=== PATIENT | female | born 1960 | race Two or more races ===

== ENCOUNTER 2019-03-12 23:00 | Emergency (ER) | payer OTHER ==
[~2019-03-12] VITALS: Ht 152.4 cm; Wt 68.9 kg
--- NOTE | 2019-03-13 00:16 | ED.ADGEN ---
Past History Past Medical History: Asthma, Diabetes, High Cholesterol Past Surgical History: No Surgical History Smoking: Non-smoker Alcohol Use: None Drug Use: None Adult General Chief Complaint Chief Complaint ".. I got these bug bites..and they are itching.. and now they are swollen... " HPI HPI Patient is a 58 year old female who presents with above hx and complaints of insect bite to back of her neck and right mid abdomen. Sites have become inflamed and red. Patient does have a history of diabetes. Does not remember her last tetanus. No recent travel or specific ill contacts. Largest area of cellulitis is right abdomen consistent with approximately 6 cm diameter area of erythema. Areas on neck are approximately 2-3 cm diameter. Review of Systems Review of Systems Constitutional: Denies fever or chills [] Eyes: Denies change in visual acuity, redness, or eye pain [] HENT: Denies nasal congestion or sore throat [] Respiratory: Denies cough or shortness of breath [] Cardiovascular: No additional information not addressed in HPI [] GI: Denies abdominal pain, nausea, vomiting, bloody stools or diarrhea [] : Denies dysuria or hematuria [] Musculoskeletal: Denies back pain or joint pain [] Integument: Complaints of insect bite and cellulitis on her neck and right abdomen Neurologic: Denies headache, focal weakness or sensory changes [] Endocrine: Denies polyuria or polydipsia [] All other systems were reviewed and found to be within normal limits, except as documented in this note. Family History Family History Noncontributory Current Medications Current Medications Current Medications Medications (Trade) Dose Ordered Sig/Hector Start Time Stop Time Status Last Admin Dose Admin Ceftriaxone Sodium (Rocephin Im) 1 gm 1X ONCE 03/13/19 01:30 03/13/19 01:31 DC 03/13/19 01:20 1 GM Diphtheria/ Tetanus/Acell Pertussis (Boostrix) 0.5 ml ONCE ONCE 03/13/19 01:30 03/13/19 01:31 DC 03/13/19 01:22 0.5 ML Tetanus/ Diphtheria Toxoids Adsorbed (Tenivac Vial) 0.5 ml ONCE ONCE 03/13/19 01:30 03/13/19 01:31 Cancel Trimethoprim/ Sulfamethoxazole (Bactrim Ds) 1 tab 1X ONCE 03/13/19 01:30 03/13/19 01:31 DC 03/13/19 01:20 1 TAB Allergies Allergies Allergies Coded Allergies Type Severity Reaction Last Updated Verified No Known Drug Allergies 01/24/14 No Physical Exam Physical Exam Constitutional: Moderate acute distress, non-toxic appearance. [] HENT: Normocephalic, atraumatic, bilateral external ears normal, oropharynx moist, no oral exudates, nose normal. [] Eyes: PERRLA, EOMI, conjunctiva normal, no discharge. [] Neck: Normal range of motion, no tenderness, supple, no stridor. [] Area of insect bites as per history of present illness Cardiovascular:Heart rate regular rhythm, no murmur [] Lungs & Thorax: Bilateral breath sounds clear to auscultation [] Abdomen: Bowel sounds normal, soft, no tenderness, no masses, no pulsatile mas ses. [] Skin: Warm, dry, no erythema, no rash. [] Insect bites and cellulitis Back: No tenderness, no CVA tenderness. [] Extremities: No tenderness, no cyanosis, no clubbing, ROM intact, no edema. [] Neurologic: Alert and oriented X 3, normal motor function, normal sensory function, no focal deficits noted. [] Psychologic: Affect anxious, judgement normal, mood normal. [] Current Patient Data Vital Signs Vital Signs Date Time Temp Pulse Resp B/P (MAP) Pulse Ox O2 Delivery O2 Flow Rate FiO2 03/13/19 00:59 98.1 EKG EKG [] Radiology/Procedures Radiology/Procedures [] Course & Med Decision Making Course & Med Decision Making Pertinent Labs and Imaging studies reviewed. (See chart for details) Patient take Benadryl 25-50 mg 4 times a day for itching. Patient to apply warm salt compresses or Epsom salts compresses 4 times a day. Apply Polysporin and massage into the area of cellulitis 4 times a day. Patient take Tylenol and ibuprofen for discomfort. A Bactrim DS twice a day for 7 days. Follow-up primary care. Return if any concerns. [] Final Impression Final Impression 1. Insect Bites 2. Cellulitis 3. DM[] Dragon Disclaimer Dragon Disclaimer This electronic medical record was generated, in whole or in part, using a voice recognition dictation system. Dragon Disclaimer This chart was dictated in whole or in part using Voice Recognition software in a busy, high-work load, and often noisy Emergency Department environment. It may contain unintended and wholly unrecognized errors or omissions. BERNABE KRUGER MD Mar 13, 2019 00:16
[2019-03-13] MEDS ORDERED: SULF1TAB24 PO (00:58)
[2019-03-13] MEDS ORDERED: BACI28.34 TP (00:58)
[2019-03-13] MEDS ORDERED: DIPH25TA64 PO (00:58)
[2019-03-13] MEDS ORDERED: TETANUS AND DIPHTHERIA TOX/PF 0.5 ML VIAL. VAX IM ONE (01:30)
[2019-03-13] MEDS ORDERED: cefTRIAXone IM 1 GM VIAL IM ONE (01:30)
[2019-03-13] MEDS ORDERED: SMZ/TMP 800/160MG TABLET. PO ONE (01:30)
[2019-03-13] MEDS ORDERED: DIPHTH,PERTUSS(ACELL),TET TOX 0.5 ML DISP.SYRIN. VAX IM ONE (01:30)
== END 2019-03-13 01:44 | disposition home or self-care (01) ==
LOC: ER 23:00
DX: S10.96XA Insect bite of unspecified part of neck, initial encounter (principal); S30.861A Insect bite (nonvenomous) of abdominal wall, initial encounter; L03.221 Cellulitis of neck; L03.311 Cellulitis of abdominal wall; J45.909 Unspecified asthma, uncomplicated; E11.9 Type 2 diabetes mellitus without complications; E78.00 Pure hypercholesterolemia, unspecified; W57.XXXA Bitten or stung by nonvenomous insect and other nonvenomous arthropods, initial encounter; Y93.89 Activity, other specified; Y92.89 Other specified places as the place of occurrence of the external cause; Y99.8 Other external cause status
CPT/HCPCS: 90471; 90715; 96372; 99284; J0696

== ENCOUNTER 2019-03-15 22:39 | Emergency (ER) | payer OTHER ==
[~2019-03-15] VITALS: Ht 152.4 cm; Wt 68.3 kg
[~2019-03-15 22:39] MED LIST: BACI28.34 TP; DIPH25TA64 PO; SULF1TAB24 PO
--- NOTE | 2019-03-15 22:50 | ED.ADGEN ---
Past History Past Medical History: Diabetes Past Surgical History: No Surgical History Smoking: Non-smoker Alcohol Use: None Drug Use: None Adult General Chief Complaint Chief Complaint ".. The cellulitis and bug bites are much better.. but now I am vomiting..." HPI HPI Patient is a 58 year old female who presents with above hx and complaints fever, nausea and vomiting. Seen previously for bug bites and cellulitis and started on Bactrim. Patient cellulitis is markedly improved. Patient has taken the Bactrim for the last 2 days.. Patient's glucose levels today were 120 on last check. No history of bad food. History of specific ill contacts. Patient is a known diabetic.. No history of trauma. Review of Systems Review of Systems Constitutional: Complaints of fever Eyes: Denies change in visual acuity, redness, or eye pain [] HENT: Denies nasal congestion or sore throat [] Respiratory: Denies cough or shortness of breath [] Cardiovascular: No additional information not addressed in HPI [] GI: Hx of nausea, vomiting,. denies bloody stools or diarrhea [] : Denies dysuria or hematuria [] Musculoskeletal: Denies back pain or joint pain [] Integument: Denies rash or skin lesions []Except Insect bites and cellulitis Neurologic: Denies headache, focal weakness or sensory changes [] Endocrine: Denies polyuria or polydipsia [] All other systems were reviewed and found to be within normal limits, except as documented in this note. Family History Family History Non-contributory Current Medications Current Medications Current Medications Medications (Trade) Dose Ordered Sig/Hector Start Time Stop Time Status Last Admin Dose Admin Albuterol Sulfate (Ventolin Hfa Inhaler) 2 puff 1X ONCE 03/16/19 02:45 03/16/19 02:58 DC 03/16/19 02:42 2 PUFF Lactated Ringer's 1,000 ml @ 1,000 mls/hr Q1H 03/15/19 23:00 03/15/19 23:59 DC 03/15/19 23:31 1,000 MLS/HR Magnesium Hydroxide (Milk Of Magnesia) 2,400 mg 1X ONCE 03/16/19 02:30 03/16/19 02:58 DC 03/16/19 02:42 2,400 MG Magnesium Sulfate 50 ml @ 25 mls/hr 1X ONCE 03/16/19 02:30 03/16/19 03:37 DC Ondansetron HCl (Zofran) 8 mg 1X ONCE 03/15/19 23:00 03/15/19 23:01 DC 03/15/19 23:31 8 MG Sodium Bicarbonate (Sodium Bicarb Adult 8.4% Syr) 50 meq 1X ONCE 03/16/19 02:30 03/16/19 02:58 DC 03/16/19 02:42 50 MEQ Allergies Allergies Allergies Coded Allergies Type Severity Reaction Last Updated Verified No Known Drug Allergies 03/15/19 No Physical Exam Physical Exam Constitutional: moderate acute distress, non-toxic appearance. [] HENT: Normocephalic, atraumatic, bilateral external ears normal, oropharynx mo ist, no oral exudates, nose normal. [] Eyes: PERRLA, EOMI, conjunctiva normal, no discharge. [] Neck: Normal range of motion, no tenderness, supple, no stridor. [] Insect bites and cellulitis on back of neck Cardiovascular: Tachycardia Heart rate regular rhythm, no murmur [] Lungs & Thorax: Bilateral breath sounds equal at apex , on auscultation [] Abdomen: Bowel sounds normal, soft, no tenderness, no masses, no pulsatile masses. [] Distended. Obese Skin: Warm, dry, areas of cellulitis and insect stings back neck and Rt. abd. ( Marked improvement since last exam) Back: No tenderness, no CVA tenderness. [] Extremities: No tenderness, no cyanosis, no clubbing, ROM intact, no edema. [] Neurologic: Alert and oriented X 3, normal motor function, normal sensory function, no focal deficits noted. [] Psychologic: Affect anxious, judgement normal, mood normal. [] Current Patient Data Vital Signs Vital Signs Date Time Temp Pulse Resp B/P (MAP) Pulse Ox O2 Delivery O2 Flow Rate FiO2 03/16/19 03:25 98.2 84 18 120/53 (75) 98 Room Air Lab Results Laboratory Tests Test 03/15/19 23:59 White Blood Count 7.6 x10^3/uL (4.0-11.0) Red Blood Count 4.40 x10^6/uL (3.50-5.40) Hemoglobin 13.0 g/dL (12.0-15.5) Hematocrit 38.3 % (36.0-47.0) Mean Corpuscular Volume 87 fL (79-100) Mean Corpuscular Hemoglobin 30 pg (25-35) Mean Corpuscular Hemoglobin Concent 34 g/dL (31-37) Red Cell Distribution Width 13.6 % (11.5-14.5) Platelet Count 182 x10^3/uL (140-400) Neutrophils (%) (Auto) 81 % (31-73) H Lymphocytes (%) (Auto) 5 % (24-48) L Monocytes (%) (Auto) 10 % (0-9) H Eosinophils (%) (Auto) 4 % (0-3) H Basophils (%) (Auto) 0 % (0-3) Neutrophils # (Auto) 6.1 x10^3uL (1.8-7.7) Lymphocytes # (Auto) 0.4 x10^3/uL (1.0-4.8) L Monocytes # (Auto) 0.8 x10^3/uL (0.0-1.1) Eosinophils # (Auto) 0.3 x10^3/uL (0.0-0.7) Basophils # (Auto) 0.0 x10^3/uL (0.0-0.2) Prothrombin Time 10.2 SEC (9.4-11.4) Prothrombin Time INR 1.0 (0.9-1.1) Activated Partial Thromboplast Time 29 SEC (23-33) Sodium Level 129 mmol/L (136-145) L Potassium Level 4.0 mmol/L (3.5-5.1) Chloride Level 95 mmol/L (98-107) L Carbon Dioxide Level 24 mmol/L (21-32) Anion Gap 10 (6-14) Blood Urea Nitrogen 6 mg/dL (7-20) L Creatinine 1.0 mg/dL (0.6-1.0) Estimated GFR (Cockcroft-Gault) 57.4 Glucose Level 140 mg/dL (70-99) H Calcium Level 8.6 mg/dL (8.5-10.1) Magnesium Level 1.7 mg/dL (1.8-2.4) L Total Bilirubin 0.3 mg/dL (0.2-1.0) Direct Bilirubin 0.1 mg/dL (0.0-0.2) Aspartate Amino Transferase (AST) 22 U/L (15-37) Alanine Aminotransferase (ALT) 34 U/L (14-59) Alkaline Phosphatase 77 U/L (46-116) Creatine Kinase 68 U/L (26-192) Troponin I Quantitative < 0.017 ng/mL (0-0.055) LQ-Qzy-U-Type Natriuretic Peptide 108 pg/mL (0-124) Total Protein 6.6 g/dL (6.4-8.2) Albumin 3.5 g/dL (3.4-5.0) Amylase Level 66 U/L (25-115) Lipase 289 U/L (73-393) EKG EKG I interpretation EKG shows a sinus rhythm at 96 bpm. No acute morphology[] Radiology/Procedures Radiology/Procedures [][address] [address] IMAGING REPORT Signed PATIENT: MEGAN REED MACCOUNT: [id number] : 1960 LOCATION: ER AGE: 58 SEX: F EXAM STATUS: REG ER ORD. PHYSICIAN: BERNABE KRUGER MD REASON: Nausea and vomiting PROCEDURE: ACUTE ABDOMEN SERIES PA chest and AP upright supine abdomen x-rays HISTORY: Nausea and vomiting. FINDINGS: Heart and mediastinum are unremarkable. No pulmonary opacities or pleural effusions. No pneumoperitoneum. Small density at the right upper quadrant perhaps related to prior cholecystectomy or could represent right renal calculus. Moderate volume of stool. No dilated small bowel loops or abnormal air-fluid levels. IMPRESSION: No acute process in the chest. No evidence of bowel obstruction. Moderate volume of stool. Electronically signed by: Didi Pavon MD (03/16/2019 1:26 AM) [facility] DICTATED AND SIGNED BY: DIDI PAVON MD DATE: 03/16/19125 CC: TANJA YAN; BERNABE KRUGER MD ~ Course & Med Decision Making Course & Med Decision Making Pertinent Labs and Imaging studies reviewed. (See chart for details) Labs Hemolyzed- re-draw 0100. Patient to push fluids. Patient take milk of magnesia until stooling. Patient follow-up primary care. Return if any concerns. A take Tylenol or ibuprofen for discomfort. Take Zofran for nausea and vomiting. Must follow-up primary care. Continue Bactrim for now. Return if any concerns. Polysporin to areas of cellulitis 4 times a day. Keep scheduled follow-up [] Final Impression Final Impression 1. Hx Insect Bites and Cellulitis 2. DM[]- gluc 140 3. Constipation 4. Viral syndrome 5. Hypomagnesium 1,7 6. Hyponatremia 129 Dragon Disclaimer Dragon Disclaimer This electronic medical record was generated, in whole or in part, using a voice recognition dictation system. Dragon Disclaimer This chart was dictated in whole or in part using Voice Recognition software in a busy, high-work load, and often noisy Emergency Department environment. It may contain unintended and wholly unrecognized errors or omissions. Dragon Disclaimer This chart was dictated in whole or in part using Voice Recognition software in a busy, high-work load, and often noisy Emergency Department environment. It may contain unintended and wholly unrecognized errors or omissions. BERNABE KRUGER MD Mar 15, 2019 22:50
[2019-03-15] MEDS ORDERED: ONDANSETRON PF 4 MG/2 ML VIAL. IV ONE (23:00)
[2019-03-15] MEDS ORDERED: IV RINGERS SOLUTION,LACTATED 1,000 ML IV SCH (23:00)
--- NOTE | 2019-03-15 23:05 | EKG ---
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
[2019-03-16 00:49] LABS: BASO % 0 % (0-3); EOS # 0.3 x10^3/uL (0.0-0.7); EOS % 4 % (0-3); HEMATOCRIT 38.3 % (36.0-47.0); LYMPH # 0.4 x10^3/uL (1.0-4.8); LYMPH % 5 % (24-48); MEAN CORPUSCULAR HEMOGLOBIN 30 pg (25-35); MEAN CORPUSCULAR HGB CONC 34 g/dL (31-37); MEAN CORPUSCULAR VOLUME 87 fL (79-100); MONO # 0.8 x10^3/uL (0.0-1.1); MONO % 10 % (0-9); NEUT # 6.1 x10^3uL (1.8-7.7); NEUT % 81 % (31-73); PLATELET COUNT 182 x10^3/uL (140-400); RED CELL DISTRIBUTION WIDTH 13.6 % (11.5-14.5); WHITE BLOOD COUNT 7.6 x10^3/uL (4.0-11.0)
[2019-03-16 00:58] LABS: ALBUMIN 3.5 g/dL (3.4-5.0); CALCIUM 8.6 mg/dL (8.5-10.1); DIRECT BILIRUBIN 0.1 mg/dL (0.0-0.2); GFR 57.4; MAGNESIUM 1.7 mg/dL (1.8-2.4); TOTAL BILIRUBIN 0.3 mg/dL (0.2-1.0); TOTAL PROTEIN 6.6 g/dL (6.4-8.2)
--- NOTE | 2019-03-16 01:29 | RAD ---
PA chest and AP upright supine abdomen x-rays HISTORY: Nausea and vomiting. FINDINGS: Heart and mediastinum are unremarkable. No pulmonary opacities or pleural effusions. No pneumoperitoneum. Small density at the right upper quadrant perhaps related to prior cholecystectomy or could represent right renal calculus. Moderate volume of stool. No dilated small bowel loops or abnormal air-fluid levels. IMPRESSION: No acute process in the chest. No evidence of bowel obstruction. Moderate volume of stool. Electronically signed by: Darnell Pavon MD (03/16/2019 1:26 AM) [facility]
[2019-03-16] MEDS ORDERED: SODIUM BICARB ADULT 8.4% 50 MEQ/50 ML DISP.SYRIN. IV ONE (02:30)
[2019-03-16] MEDS ORDERED: MAGNESIUM SULFATE 2GM 50 ML IV ONE (02:30)
[2019-03-16] MEDS ORDERED: MAGNESIUM HYDROXIDE 2,400 MG/30 ML ORAL.SUSP. PO ONE (02:30)
[2019-03-16] MEDS ORDERED: ALBUTEROL SULFATE 8GM INHALER. ONE (02:38)
[2019-03-16] MEDS ORDERED: ALBUTEROL SULFATE 8GM INHALER. INH ONE (02:45)
[2019-03-16] MEDS ORDERED: ONDA8TAB9 PO (02:51)
[2019-03-16 03:25] VITALS: BP 120/53
== END 2019-03-16 03:35 | disposition home or self-care (01) ==
LOC: ER 22:39
DX: S10.86XD Insect bite of other specified part of neck, subsequent encounter (principal); S30.861D Insect bite (nonvenomous) of abdominal wall, subsequent encounter; L03.221 Cellulitis of neck; L03.311 Cellulitis of abdominal wall; E11.9 Type 2 diabetes mellitus without complications; R11.2 Nausea with vomiting, unspecified; K59.00 Constipation, unspecified; B34.9 Viral infection, unspecified; E83.42 Hypomagnesemia; E87.1 Hypo-osmolality and hyponatremia; W57.XXXD Bitten or stung by nonvenomous insect and other nonvenomous arthropods, subsequent encounter
CPT/HCPCS: 36415; 74022; 80048; 80076; 82150; 82550; 83690; 83735; 83880; 84443; 84484; 85025; 85610; 85730; 86705; 86709; 86803; 87040; 87340; 93005; 94640; 96361; 96374; 96375; 99285; J2405; J7120; J7613

== ENCOUNTER 2019-03-17 19:49 | Emergency (ER) | payer OTHER ==
[~2019-03-17] VITALS: Ht 152.4 cm; Wt 68.3 kg
[2019-03-17 19:49] VITALS: BP 145/84
[~2019-03-17 19:49] MED LIST changes: +ONDA8TAB9 PO
--- NOTE | 2019-03-17 19:52 | ED.ADGEN ---
Past History Past Medical History: Diabetes Past Surgical History: No Surgical History Smoking: Non-smoker Alcohol Use: None Drug Use: None Adult General Chief Complaint Chief Complaint ".. This is the third time I ve been in the Emergency room.. now I got a rash .. it seems to be from the pills... ( Bactrim) every time I take them I get a josh h..." HPI HPI Patient is a 58 year old female who presents with above hx and complaints she is rash after taking Bactrim. Patient denies any other changes in meds. No recent travel. Up-to-date with vaccinations. Patient had several insect bites to back of neck and right abdomen that developed cellulitis on previous visit. The sites has showed increased healing and resolution of significant inflammation. No history of travel. Denies immunosuppression. No history of changes in foods or soaps and only new drug has been the Bactrim. Patient normally follows at [facility]. Review of Systems Review of Systems Constitutional: Denies fever or chills [] Eyes: Denies change in visual acuity, redness, or eye pain [] HENT: Denies nasal congestion or sore throat [] Respiratory: Denies cough or shortness of breath [] Cardiovascular: No additional information not addressed in HPI [] GI: Denies abdominal pain, nausea, vomiting, bloody stools or diarrhea [] : Denies dysuria or hematuria [] Musculoskeletal: Denies back pain or joint pain [] Integument: Complaints of a allergic drug reaction to Bactrim Neurologic: Denies headache, focal weakness or sensory changes [] Endocrine: Denies polyuria or polydipsia [] All other systems were reviewed and found to be within normal limits, except as documented in this note. Family History Family History Noncontributory Current Medications Current Medications Current Medications Medications (Trade) Dose Ordered Sig/Hector Start Time Stop Time Status Last Admin Dose Admin Albuterol Sulfate (Ventolin Hfa Inhaler) 2 puff 1X ONCE 03/17/19 20:30 03/17/19 20:33 DC 03/17/19 20:47 2 PUFF Famotidine (Pepcid Vial) 20 mg 1X ONCE 03/17/19 20:30 03/17/19 20:33 DC 03/17/19 21:00 20 MG Lactated Ringer's 1,000 ml @ 1,000 mls/hr 1X ONCE 03/17/19 20:30 03/17/19 21:29 DC 03/17/19 21:00 1,000 MLS/HR Magnesium Hydroxide (Milk Of Magnesia) 2,400 mg 1X ONCE 03/17/19 20:30 03/17/19 20:33 DC 03/17/19 21:00 2,400 MG Methylprednisolone Sodium Succinate (SOLU-Medrol 125MG VIAL) 125 mg 1X ONCE 03/17/19 20:30 03/17/19 20:33 DC 03/17/19 21:00 125 MG Allergies Allergies Allergies Coded Allergies Type Severity Reaction Last Updated Verified sulfamethoxazole Allergy Severe Rash 03/17/19 Yes trimethoprim Allergy Severe Rash 03/17/19 Yes Sulfa (Sulfonamide Antibiotics) Allergy Intermediate Rash 03/17/19 Yes Physical Exam Physical Exam Constitutional: Moderate acute distress, non-toxic appearance. [] HENT: Normocephalic, atraumatic, bilateral external ears normal, oropharynx moist, no oral exudates, nose normal. [] Eyes: PERRLA, EOMI, conjunctiva normal, no discharge. [] Neck: Normal range of motion, no tenderness, supple, no stridor. [] Cardiovascular:Heart rate regular rhythm, no murmur [] Lungs & Thorax: Bilateral breath sounds clear to auscultation [] Abdomen: Bowel sounds normal, soft, no tenderness, no masses, no pulsatile masses. [] Obese Skin: Warm, dry, extensive erythemic hive like rash. Insect bites and cellulitis showed marked clearing from previous visit Back: No tenderness, no CVA tenderness. [] Extremities: No tenderness, no cyanosis, no clubbing, ROM intact, no edema. [] Neurologic: Alert and oriented X 3, normal motor function, normal sensory function, no focal deficits noted. [] Psychologic: Affect normal, judgement normal, mood normal. [] Current Patient Data Vital Signs Vital Signs Date Time Temp Pulse Resp B/P (MAP) Pulse Ox O2 Delivery O2 Flow Rate FiO2 03/17/19 20:48 98 Room Air 03/17/19 19:49 98.3 72 18 EKG EKG [] Radiology/Procedures Radiology/Procedures [] Course & Med Decision Making Course & Med Decision Making Pertinent Labs and Imaging studies reviewed. (See chart for details). Patient avoid use of sulfa or Bactrim in the future. Patient take Benadryl 20/5/50 milligrams 4 times a day. Patient take Zantac and 50 mg twice a day. Patient to use 2 puffs 4 times a day. Patient to massage area of cellulitis with Polysporin 4 times a day. Would not restart an oral antibiotic this time. [] Final Impression Final Impression 1. Rash[]- Delayed Drug Reaction - Bactrim - Sulfa. 2. History of insect bites and cellulitis 3. History of diabetes Dragon Disclaimer Dragon Disclaimer This electronic medical record was generated, in whole or in part, using a voice recognition dictation system. Dragon Disclaimer This chart was dictated in whole or in part using Voice Recognition software in a busy, high-work load, and often noisy Emergency Department environment. It may contain unintended and wholly unrecognized errors or omissions. BERNABE KRUGER MD Mar 17, 2019 19:52
[2019-03-17] MEDS ORDERED: methylPREDNISolone SOD SUCC PF 125 MG/2 ML VIAL. IV ONE (20:30)
[2019-03-17] MEDS ORDERED: MAGNESIUM HYDROXIDE 2,400 MG/30 ML ORAL.SUSP. PO ONE (20:30)
[2019-03-17] MEDS ORDERED: ALBUTEROL SULFATE 8GM INHALER. INH ONE (20:30)
[2019-03-17] MEDS ORDERED: IV RINGERS SOLUTION,LACTATED 1,000 ML IV ONE (20:30)
[2019-03-17] MEDS ORDERED: FAMOTIDINE 20 MG/2 ML VIAL IVP ONE (20:30)
[2019-03-18] MEDS ORDERED: PRED20TA PO (17:19)
== END 2019-03-17 22:05 | disposition home or self-care (01) ==
LOC: ER 19:49
DX: L25.8 Unspecified contact dermatitis due to other agents (principal); T36.8X5A Adverse effect of other systemic antibiotics, initial encounter; E11.9 Type 2 diabetes mellitus without complications; Z88.2 Allergy status to sulfonamides; Z88.1 Allergy status to other antibiotic agents; Y92.89 Other specified places as the place of occurrence of the external cause
CPT/HCPCS: 94640; 96374; 96375; 99284; J2930; J3490; J7120; J7613; 94664

== ENCOUNTER 2019-03-18 16:30 | Emergency (ER) | payer OTHER ==
[~2019-03-18] VITALS: Ht 152.4 cm; Wt 67.6 kg
[2019-03-18] MEDS ORDERED: predniSONE 20 MG TABLET PO ONE (17:15)
[2019-03-18] MEDS ORDERED: PRED20TA PO (17:19)
--- NOTE | 2019-03-18 17:20 | PHYS DOC ---
Past History Past Medical History: Asthma, Diabetes Past Surgical History: No Surgical History Smoking: Non-smoker Alcohol Use: None Drug Use: None Adult General Chief Complaint Chief Complaint: SKIN PROBLEM HPI HPI Patient is a 58-year-old female who presents to the emergency department for evaluation. She was treated with Bactrim several days ago for a skin infection, which has improved significantly, but she developed a drug reaction, and has developed some urticarial lesions scattered throughout her body. She was seen in the emergency department yesterday, and put on antihistamines, but not steroids, and states that she is not any better. However, she is also not any worse. She denies any shortness of breath, fever, dizziness, lightheadedness, or swelling in her throat. There are no alleviating or exacerbating factors to her symptoms. Review of Systems Review of Systems Constitutional: Denies fever or chills [] Eyes: Denies change in visual acuity, redness, or eye pain [] HENT: Denies nasal congestion or sore throat [] Respiratory: Denies cough or shortness of breath [] GI: Denies abdominal pain, nausea, vomiting, bloody stools or diarrhea [] : Denies dysuria or hematuria [] Musculoskeletal: Denies back pain or joint pain [] Neurologic: Denies headache, focal weakness or sensory changes [] Endocrine: Denies polyuria or polydipsia and blood sugar has been running in the low 100s.[] All other systems were reviewed and found to be within normal limits, except as documented in this note. Allergies Allergies Allergies Coded Allergies Type Severity Reaction Last Updated Verified sulfamethoxazole Allergy Severe Rash 03/17/19 Yes trimethoprim Allergy Severe Rash 03/17/19 Yes Sulfa (Sulfonamide Antibiotics) Allergy Intermediate Rash 03/17/19 Yes Physical Exam Physical Exam PHYSICAL EXAM: CONSTITUTIONAL: Well developed, well nourished HEAD: normocephalic, atraumatic EENT: PERRL, EOMI. Conjunctivae normal color, sclerae non-icteric; moist mucous membranes. The oropharynx is unremarkable, there is no edema. NECK: Supple, non-tender; no meningismus. LUNGS: Lungs CTA, breathing even and unlabored. Normal air movement. HEART: Regular rate and rhythm, no murmur CHEST: No deformity; non-tender ABDOMEN: The abdomen is soft, and non-tender, no masses or bruits. EXTREM: Normal ROM; no deformity, no calf tenderness. Normal pulses palpable in all extremities. There is no pedal edema. SKIN: There is a scattered urticarial rash on the upper extremities and trunk; no diaphoresis NEURO: Alert; normal speech and cognition; CN's grossly intact; strength grossly intact without focal deficit. BACK: No CVA TTP. EKG EKG [] Radiology/Procedures Radiology/Procedures [] Course & Med Decision Making Course & Med Decision Making Prior notes reviewed. I discussed continued use of antihistamines with the patie nt, as well as a short course of steroids. We discussed return precautions in detail. Dragon Disclaimer Dragon Disclaimer This electronic medical record was generated, in whole or in part, using a voice recognition dictation system. Departure Departure: Impression: Primary Impression: Drug reaction Disposition: 01 HOME, SELF-CARE Condition: STABLE Referrals: TANJA YAN (PCP) Patient Instructions: Allergies, Generic, Drug Allergy Scripts Prednisone (PREDNISONE) 20 Mg Tablet 40 MG PO DAILY for - for 3 Days, #6 TAB Begin taking this medication 03/19/19 Prov: YESIKA TAABRES MD 03/18/19 YESIKA TABARES MD Mar 18, 2019 17:20
[2019-03-18 17:30] VITALS: BP 133/58
== END 2019-03-18 17:35 | disposition home or self-care (01) ==
LOC: ER 16:30
DX: L08.89 Other specified local infections of the skin and subcutaneous tissue (principal); T36.8X5D Adverse effect of other systemic antibiotics, subsequent encounter; J45.909 Unspecified asthma, uncomplicated; E11.9 Type 2 diabetes mellitus without complications; Z88.2 Allergy status to sulfonamides; Z88.1 Allergy status to other antibiotic agents; Y92.89 Other specified places as the place of occurrence of the external cause
CPT/HCPCS: 99283; J7512

== ENCOUNTER 2019-03-19 00:08 | Emergency (ER) | payer OTHER ==
[~2019-03-19] VITALS: Ht 152.4 cm; Wt 68.3 kg
[~2019-03-19 00:08] MED LIST changes: +PRED20TA PO
--- NOTE | 2019-03-19 01:01 | PHYS DOC ---
Past History Past Medical History: Asthma, Diabetes, High Cholesterol Past Surgical History: No Surgical History Smoking: Non-smoker Alcohol Use: None Drug Use: None Adult General Chief Complaint Chief Complaint: SHORTNESS OF BREATH [facility] HPI 58-year-old female returns emergency room with rash and shortness of breath. The patient was discharged from this emergency room 7 hours ago. This is her fourth visit in 4 days. This all started with a rash area the patient has had urticaria that is pruritic all over her body since starting to take Bactrim last week. She stopped the Bactrim 3 days ago. The patient presents this evening because she feels like it is a little bit harder to take a deep breath. She has taken 2 doses of Benadryl since discharge. She is also used her inhaler. She denies any other new or different environmental, medication, or food exposure. The patient has no known previous allergies. Review of Systems Review of Systems Constitutional: Denies fever or chills [] Eyes: Denies change in visual acuity, redness, or eye pain [] HENT: Denies nasal congestion or sore throat [] Respiratory: Denies cough or shortness of breath [] Cardiovascular: No additional information not addressed in HPI [] GI: Denies abdominal pain, nausea, vomiting, bloody stools or diarrhea [] : Denies dysuria or hematuria [] Musculoskeletal: Denies back pain or joint pain [] Integument: Rash [] Neurologic: Denies headache, focal weakness or sensory changes [] Endocrine: Denies polyuria or polydipsia [] All other systems were reviewed and found to be within normal limits, except as documented in this note. Allergies Allergies Allergies Coded Allergies Type Severity Reaction Last Updated Verified sulfamethoxazole Allergy Severe Rash 03/17/19 Yes trimethoprim Allergy Severe Rash 03/17/19 Yes Sulfa (Sulfonamide Antibiotics) Allergy Intermediate Rash 03/17/19 Yes Physical Exam Physical Exam Constitutional: Well developed, well nourished, no acute distress, non-toxic appearance. [] HENT: Normocephalic, atraumatic, bilateral external ears normal, oropharynx moist, no oral exudates, nose normal. [] Eyes: PERRLA, EOMI, conjunctiva normal, no discharge. [] Neck: Normal range of motion, no tenderness, supple, no stridor. [] Cardiovascular:Heart rate regular rhythm, no murmur [] Lungs & Thorax: Bilateral breath sounds clear to auscultation [] Abdomen: Bowel sounds normal, soft, no tenderness, no masses, no pulsatile masses. [] Skin: Irregular, pruritic, edematous changes all over the patient's skin to include her hands and feet, dorsal side. Her face is also affected.[] Back: No tenderness, no CVA tenderness. [] Extremities: No tenderness, no cyanosis, no clubbing, ROM intact, no edema. [] Neurologic: Alert and oriented X 3, normal motor function, normal sensory function, no focal deficits noted. [] Psychologic: Affect normal, judgement normal, mood normal. [] Current Patient Data Vital Signs Vital Signs Date Time Temp Pulse Resp B/P (MAP) Pulse Ox O2 Delivery O2 Flow Rate FiO2 03/19/19 00:13 98.2 96 18 99 Room Air EKG EKG [] Radiology/Procedures Radiology/Procedures [] Impressions: Chest, PA and Lateral: Technique: PA and lateral views of the chest were obtained. History: Shortness of breath. Comparison: None. Findings: The heart and pulmonary vasculature appear within normal limits. The lungs are clear. The pleural margins are clear. Impression: No acute chest process is seen. Electronically signed by: Juan Miguel Gutierrez MD (03/19/2019 1:08 AM) [facility] DICTATED AND SIGNED BY: JUAN MIGUEL GUTIERREZ MD DATE: 03/19/19 0108 CC: BILLY FLORES DO; TANJA YAN ~ Course & Med Decision Making Course & Med Decision Making Pertinent Labs and Imaging studies reviewed. (See chart for details) The patient's labs are unremarkable. Her chest x-rays negative for acute findings. The patient's rash appears to be consistent with urticaria as an allergic reaction. She has been appropriately treated by my colleagues with her previous visits. I don't have anything to add at this time. 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 Patient's saturation and respiratory rate have both been normal throughout her stay in the emergency room. I believe she is stable for discharge at this time. [] Dragon Disclaimer Dragon Disclaimer This electronic medical record was generated, in whole or in part, using a voice recognition dictation system. Departure Departure: Impression: Primary Impression: Shortness of breath Additional Impression: Allergic reaction caused by a drug Disposition: 01 HOME, SELF-CARE Condition: STABLE Referrals: TANJA YAN (PCP) Patient Instructions: Drug Allergy, Ytyp-oe-Zeto Problem Qualifiers Additional Impression: Allergic reaction caused by a drug Encounter type: initial encounter Qualified Codes: T78.40XA - Allergy, unspecified, initial encounter BILLY FLORES DO Mar 19, 2019 01:01
[2019-03-19 01:05] LABS: BASO # 0.1 x10^3/uL (0.0-0.2); BASO % 1 % (0-3); EOS % 0 % (0-3); HEMATOCRIT 43.3 % (36.0-47.0); HEMOGLOBIN 14.3 g/dL (12.0-15.5); LYMPH # 1.2 x10^3/uL (1.0-4.8); LYMPH % 10 % (24-48); MEAN CORPUSCULAR HEMOGLOBIN 29 pg (25-35); MEAN CORPUSCULAR HGB CONC 33 g/dL (31-37); MEAN CORPUSCULAR VOLUME 87 fL (79-100); MONO # 0.4 x10^3/uL (0.0-1.1); MONO % 3 % (0-9); NEUT # 9.6 x10^3uL (1.8-7.7); NEUT % 86 % (31-73); PLATELET COUNT 230 x10^3/uL (140-400); RED BLOOD COUNT 4.99 x10^6/uL (3.50-5.40); RED CELL DISTRIBUTION WIDTH 13.3 % (11.5-14.5); WHITE BLOOD COUNT 11.3 x10^3/uL (4.0-11.0)
--- NOTE | 2019-03-19 01:11 | RAD ---
Chest, PA and Lateral: Technique: PA and lateral views of the chest were obtained. History: Shortness of breath. Comparison: None. Findings: The heart and pulmonary vasculature appear within normal limits. The lungs are clear. The pleural margins are clear. Impression: No acute chest process is seen. Electronically signed by: Juan Miguel Gutierrez MD (03/19/2019 1:08 AM) [facility]
[2019-03-19 01:17] LABS: BACTERIA,URINE 0 /HPF (0-FEW); BILIRUBIN,URINE NEG (NEG); CLARITY,URINE CLEAR; COLOR,URINE COLORLESS; GLUCOSE,URINE 250 mg/dL (NEG); NITRITE,URINE NEG (NEG); RBC,URINE 0 /HPF (0-2); SQUAMOUS EPITHELIAL CELL,UR OCC /LPF; UROBILINOGEN,URINE 0.2 mg/dL (0.2 mg/dL); WBC,URINE RARE /HPF (0-4)
[2019-03-19 01:19] LABS: ALBUMIN 3.8 g/dL (3.4-5.0); CALCIUM 9.1 mg/dL (8.5-10.1); GFR 57.4; POTASSIUM 3.9 mmol/L (3.5-5.1); TOTAL BILIRUBIN 0.3 mg/dL (0.2-1.0); TOTAL PROTEIN 7.6 g/dL (6.4-8.2)
[2019-03-19 01:45] VITALS: BP 138/64
== END 2019-03-19 01:49 | disposition home or self-care (01) ==
LOC: ER 00:08
DX: T78.49XD Other allergy, subsequent encounter (principal); T36.8X5D Adverse effect of other systemic antibiotics, subsequent encounter; J45.909 Unspecified asthma, uncomplicated; E11.9 Type 2 diabetes mellitus without complications; E78.00 Pure hypercholesterolemia, unspecified; Z88.2 Allergy status to sulfonamides; Z88.1 Allergy status to other antibiotic agents; X58.XXXD Exposure to other specified factors, subsequent encounter
CPT/HCPCS: 36415; 71046; 80053; 81001; 85025; 99285

== ENCOUNTER 2020-10-07 12:47 | Emergency (ER) | payer OTHER ==
[~2020-10-07] VITALS: Ht 152.4 cm; Wt 66.7 kg
--- NOTE | 2020-10-07 13:48 | EKG ---
[address] [address] Test Date: 2020-10-07 Test Time: 13:00:00 Pat Name: MEGAN REED Department: Room: Gender: F Time Motion Analyst: GIOVANNI : 1960 Requested By: JAMES VILLATORO Order Number: [id number] Reading MD: Measurements Intervals [place] Rate: 90 P: 84 GA: 172 QRS: 29 QRSD: 84 T: 25 QT: 350 QTc: 432 Interpretive Statements SINUS RHYTHM NORMAL ECG RI6.02 No previous ECG available for comparison
--- NOTE | 2020-10-07 13:52 | RAD ---
EXAM: Chest, 2 views. HISTORY: Short of breath. COMPARISON: 03/19/2019 FINDINGS: 2 views of the chest are obtained. There is no infiltrate, pleural effusion or pneumothorax . The heart is normal in size. IMPRESSION: No acute pulmonary finding. Electronically signed by: Cece Nevarez MD (10/07/2020 1:50 PM) [facility]
[2020-10-07 13:58] LABS: BASO # 0.1 x10^3/uL (0.0-0.2); BASO % 1 % (0-3); EOS # 0.1 x10^3/uL (0.0-0.7); EOS % 1 % (0-3); HEMATOCRIT 44.9 % (36.0-47.0); HEMOGLOBIN 15.2 g/dL (12.0-15.5); LYMPH # 1.6 x10^3/uL (1.0-4.8); LYMPH % 17 % (24-48); MEAN CORPUSCULAR HEMOGLOBIN 29 pg (25-35); MEAN CORPUSCULAR HGB CONC 34 g/dL (31-37); MEAN CORPUSCULAR VOLUME 87 fL (79-100); MONO # 0.5 x10^3/uL (0.0-1.1); MONO % 5 % (0-9); NEUT # 7.3 x10^3uL (1.8-7.7); NEUT % 76 % (31-73); PLATELET COUNT 247 x10^3/uL (140-400); RED BLOOD COUNT 5.16 x10^6/uL (3.50-5.40); RED CELL DISTRIBUTION WIDTH 13.8 % (11.5-14.5); WHITE BLOOD COUNT 9.5 x10^3/uL (4.0-11.0)
--- NOTE | 2020-10-07 14:07 | PHYS DOC ---
Past History Past Medical History: Asthma, Diabetes, GERD, High Cholesterol Past Surgical History: No Surgical History Smoking: Non-smoker Alcohol Use: None Drug Use: None Adult General Chief Complaint Chief Complaint: SHORTNESS OF BREATH HPI HPI Patient is a 52-year-old female presents emergency department complaining of asthma problems since this past Monday. Patient states she has been taking her Advair inhaler and albuterol every 4 hours since then without relief. Patient denies any chest pains, chest congestion or nasal congestion. Patient denies any recent fever or chills. Patient denies any recent COVID-19 exposure, states she had her second dose of Moderiba on August 27 without complications. Patient states she has no recent travel. Patient denies headaches, fever chills, nausea, vomiting, or diarrhea. Patient denies any abdominal pains. Patient denies any other physical complaints or physical concerns. Patient states her home medications are Janumet, Jardiance, calcium, Zocor, daily aspirin, and daily multivitamin. Review of Systems Review of Systems 14 body systems of review of systems have been reviewed. See HPI for pertinent positives and negative responses, otherwise all other systems are negative, nonpertinent or noncontributory. Allergies Allergies Allergies Coded Allergies Type Severity Reaction Last Updated Verified sulfamethoxazole Allergy Severe Rash 10/07/20 Yes trimethoprim Allergy Severe Rash 10/07/20 Yes Sulfa (Sulfonamide Antibiotics) Allergy Intermediate Rash 10/07/20 Yes Physical Exam Physical Exam Constitutional: Well developed, well nourished, no acute distress, non-toxic appearance. 60-year-old female in no apparent distress, no respiratory distress. HENT: Normocephalic, atraumatic, bilateral external ears normal, oropharynx moist, no oral exudates, nose normal. Eyes: PERRLA, EOMI, conjunctiva normal, no discharge. Neck: Normal range of motion, no tenderness, supple, no stridor. Cardiovascular:Heart rate regular rhythm, no murmur, heart sounds S1-S2. Lungs & Thorax: Bilateral breath sounds clear to auscultation all lung doherty, no adventitious lung sounds appreciated. Abdomen: Bowel sounds normal, soft, no tenderness, no masses, no pulsatile masses. Skin: Warm, dry, no erythema, no rash. Back: No tenderness, no CVA tenderness. Extremities: No tenderness, no cyanosis, no clubbing, ROM intact, no edema. Distal cap refill less than 2 seconds. Neurologic: Alert and oriented X 3, normal motor function, normal sensory function, no focal deficits noted. Psychologic: Affect normal, judgement normal, mood normal. Current Patient Data Vital Signs Vital Signs Date Time Temp Pulse Resp B/P (MAP) Pulse Ox O2 Delivery O2 Flow Rate FiO2 10/07/20 12:56 98.3 103 20 146/67 (93) 98 Room Air EKG EKG EKG performed at 1300 by house respiratory therapy staff shows a normal sinus rhythm without ectopy heart rate 90 bpm. AR interval 0.172, QTc interval 0.432, no acute STEMI, no ACS, no acute ischemia appreciated, EKG interpreted by ED attending physician Dr. Vasquez. Radiology/Procedures Radiology/Procedures PATIENT: MEGAN REED MACCOUNT: [id number] : 1960 LOCATION: ER AGE: 60 SEX: F EXAM STATUS: REG ER ORD. PHYSICIAN: JAMES VILLATORO APRN REASON: SHORT OF BREATH PROCEDURE: CHEST PA & LATERAL EXAM: Chest, 2 views. HISTORY: Short of breath. COMPARISON: 03/19/2019 FINDINGS: 2 views of the chest are obtained. There is no infiltrate, pleural effusion or pneumothorax. The heart is normal in size. IMPRESSION: No acute pulmonary finding. Electronically signed by: Cece Bloom MD (10/07/2020 1:50 PM) [facility] DICTATED AND SIGNED BY: CECE BLOOM MD DATE: 10/07/20 1350 CC: JAMES VILLATORO APRN; TANJA YAN ~MTH0 0 Heart Score C/O Chest Pain: No Risk Factors: Risk Factors: DM, Current or recent (<one month) smoker, HTN, HLP, family history of CAD, obesity. Risk Scores: Risk Factors: DM, Current or recent (<one month) smoker, HTN, HLP, family history of CAD, obesity. Course & Med Decision Making Course & Med Decision Making Pertinent Labs and Imaging studies reviewed. (See chart for details) 60-year-old female, vital signs reviewed, presents emergency department with complaints of asthma problems for the past 4 days. Physical examination was unremarkable, however related to patient's chief complaint and history a cardiopulmonary work-up was initiated in the ED. Upon reexamination of the patient, labs still pending, patient continues to complain of asthma problems, patient's lung sounds clear to auscultation all lung doherty, there were no adventitious lung sounds appreciated, the patient is in no respiratory distress, the patient was not hypoxic, will give 0.5 mg of Ativan to rule out anxiety component. Patient is EKG and cardiac enzymes unremarkable, patient's chest x-ray read negative for acute process by house radiologist interpretation, the patient does have a history of type 2 diabetes, there was glucosuria otherwise her urine was not infected. Patient's lab work nonconcerning for infectious process, the patient's D-dimer was nonconcerning for PE. Will give 60 mg redness own p.o. here in the ED today and discharged home with 20 mg prednisone p.o. x5 days. Patient states she has an appointment to see her primary care physician tomorrow at the [facility] to the hospital. Will encourage patient to keep this appointment and let him know of the events that happened in the emergency department today. Patient gave verbal understanding of discharge home instructions, follow-up with primary care tomorrow, prednisone prescription use, return to ER precautions and concerns, patient states she feels okay to go home and has no further questions or concerns, patient was discharged home without incident. Dragon Disclaimer Dragon Disclaimer This electronic medical record was generated, in whole or in part, using a voice recognition dictation system. Departure Departure: Impression: Primary Impression: Asthma exacerbation, mild Disposition: 01 HOME / SELF CARE / HOMELESS Condition: GOOD Referrals: TANJA YAN (PCP) Patient Instructions: Asthma, Adult Additional Instructions: You were evaluated today in the emergency department for your complaint of shortness of breath. You have been treating yourself at home with your asthma medications since Monday using them daily. We have checked your heart with an EKG and blood enzymes that were not concerning for any heart problems or heart conditions that require admission to the hospital or follow-up with a melter operator. I also checked your lungs with an x-ray, and lab work looking for blood clots or a pulmonary embolism, there was no sign of either of these, there was no sign of bronchitis or pneumonia on your x-ray. I am starting you on prednisone, you will take 1 tablet starting tomorrow for the next 5 days. You have indicated you have an appointment to see your primary care physician tomorrow, I encourage you to keep this appointment and let him know what we did in the emergency department today. Please return to the emergency department for worsening symptoms or other concerns. EMERGENCY DEPARTMENT GENERAL DISCHARGE INSTRUCTIONS Thank you for coming to [facility] (ED) today and trusting us with you care. We trust that you had a positivie experience in our Emergency Department. If you wish to speak to the department management, you may call the director at [phone]. YOUR FOLLOW UP INSTRUCTIONS ARE FOLLOWS: 1. Do you have a private Doctor? If you do not have a private doctor, please ask for a resource list of physicians or clinics that may be able to assist you with follow up care. 2. The Emergency Physician has interpreted your x-rays. The X-Ray specialist will also review them. If there is a change in the findings, you will be notified in 48 hours when at all possible. 3. A lab test or culture has been done, your results will be reviewed and you will be notified if you need a change in treatment. ADDITIONAL INSTRUCTIONS AND INFORMATION: 1. Your care today has been supervised by a physician who is specially trained in emergency care. Many problems require more than one evaluation for a complete diagnosis and treatment. We recommend that you schedule your follow up appointment as recommended to ensure complete treatment of you illness or injury. If you are unable to obtain follow up care and continue to have a problem, or if your condition worsens, we recommend that you return to the ED. 2. We are not able to safely determine your condition over the phone nor are we able to give sound medical advice over the phone. For these safety reasons, if you call for medical advice we will ask you to come to the ED for further evaluation. 3. If you have any questions regarding these discharge instructions please call the ED at [phone]. SAFETY INFORMATION: In the interest of safety, wellness, and injury prevention; we encourage you to wear your sealbelt, if you smoke; quite smoking, and we encourage family to use a protective helmet for bicycling and other sporting events that present an increased risk for head injury. IF YOUR SYMPTOMS WORSEN OR NEW SYMPTOMS DEVELOP, OR YOU HAVE CONCERNS ABOUT YOUR CONDITION; OR IF YOUR CONDITION WORSENS WHILE YOU ARE WAITING FOR YOUR FOLLOW UP APPOINTMENT; EITHER CONTACT YOUR PRIMARY CARE DOCTOR, THE PHYSICIAN WHOSE NAME AND NUMBER YOU WERE GIVEN, OR RETURN TO THE ED IMMEDIATELY. Scripts Prednisone (PREDNISONE) 20 Mg Tablet 1 TAB PO DAILY for ASTHMA for 5 Days, #5 TAB 0 Refills Prov: JAMES VILLATORO APRN 10/07/20 JAMES VILLATORO APRN Oct 07, 2020 14:07
[2020-10-07 14:13] LABS: CALCIUM 9.4 mg/dL (8.5-10.1); CREATININE 0.8 mg/dL (0.6-1.0); GFR 73.7
[2020-10-07 14:23] LABS: ALBUMIN 4.2 g/dL (3.4-5.0); ALBUMIN/GLOBULIN RATIO 1.1 (1.0-1.7); MAGNESIUM 2.2 mg/dL (1.8-2.4); PHOSPHORUS 3.2 mg/dL (2.6-4.7); TOTAL BILIRUBIN 0.2 mg/dL (0.2-1.0); TOTAL PROTEIN 7.9 g/dL (6.4-8.2)
[2020-10-07 14:24] LABS: POTASSIUM 3.7 mmol/L (3.5-5.1)
[2020-10-07 14:27] LABS: BILIRUBIN,URINE NEG (NEG); CLARITY,URINE CLEAR; COLOR,URINE STRAW; GLUCOSE,URINE >=1000 mg/dL (NEG); NITRITE,URINE NEG (NEG); UROBILINOGEN,URINE 0.2 mg/dL (0.2 mg/dL)
[2020-10-07 14:28] LABS: BACTERIA,URINE 0 /HPF (0-FEW); RBC,URINE 0 /HPF (0-2); WBC,URINE 0 /HPF (0-4)
[2020-10-07] MEDS ORDERED: predniSONE 20 MG TABLET PO ONE (15:00)
[2020-10-07] MEDS ORDERED: PRED20TA PO (15:01)
[2020-10-07 15:13] VITALS: BP 125/57
== END 2020-10-07 15:15 | disposition home or self-care (01) ==
LOC: ER 12:47
DX: J45.21 Mild intermittent asthma with (acute) exacerbation (principal); E11.9 Type 2 diabetes mellitus without complications; K21.9 Gastro-esophageal reflux disease without esophagitis; E78.00 Pure hypercholesterolemia, unspecified; Z79.899 Other long term (current) drug therapy; Z79.82 Long term (current) use of aspirin; Z88.2 Allergy status to sulfonamides; Z88.1 Allergy status to other antibiotic agents
CPT/HCPCS: 36415; 71046; 80053; 81001; 83735; 83880; 84100; 84484; 85025; 85379; 93005; 96374; 99285; J2060; J7512